=== PATIENT | male | born 1970 | race Caucasian/White ===

== ENCOUNTER 2016-06-13 17:46 | Emergency (ER) | payer SELFPAY ==
[~2016-06-13] VITALS: Ht 177.8 cm; Wt 91.0 kg
[~2016-06-13 17:46] MED LIST: ETOMIDATE 2MG/ML 10ML VIAL IV ONE; VECURONIUM BROMIDE 10 MG/VIAL IV ONE
[2016-06-13 19:46] LABS: BASOPHILS % 0.9 % (0.0-2.0); HEMATOCRIT. 41.1 % (42.0-52.0); LYMPHOCYTES % 20.7 % (20.0-50.0); MEAN CORPUSCULAR HEMOGLOBIN 30.8 pg (28.0-32.0); MEAN CORPUSCULAR VOLUME 90.3 fL (80.0-94.0); MEAN PLATELET VOLUME 8.9 fl (7.4-10.4); MONOCYTES % 5.2 % (2.0-8.0); NEUTROPHILS % 73.2 % (40.0-76.0); PLATELET 93 x1000/uL (130-400); RED BLOOD CELL COUNT 4.56 mill/uL (4.7-6.1); RED CELL DISTRIBUTION WIDTH 19.7 % (11.6-14.6)
[2016-06-13 19:47] LABS: CARBON DIOXIDE 20 mEq/L (21-32); CHLORIDE 96 mEq/L (98-107); ETHANOL BLOOD 53 mg/dL
[2016-06-13] MEDS ORDERED: PHENYTOIN SODIUM 500 MG in SODIUM CHLORIDE 0.9% 50 ML IV ONE (20:45)
[2016-06-13] MEDS ORDERED: MANNITOL 12.5G (25%) VIAL 50ML IV ONE (20:45)
[2016-06-13] MEDS ORDERED: PROPOFOL 10MG/ML 100ML 100 ML IV ONE (21:00)
[2016-06-13] MEDS ORDERED: MANNITOL 12.5G (25%) VIAL 50ML IV NR (21:00)
[2016-06-13 21:06] VITALS: BP 144/93
[2016-06-13] MEDS ORDERED: ETOMIDATE 2MG/ML 10ML VIAL IV ONE (23:30)
[2016-06-13] MEDS ORDERED: VECURONIUM BROMIDE 10 MG/VIAL IV ONE (23:30)
== END 2016-06-13 23:21 | disposition short-term general hospital (02) ==
LOC: ER 17:47
DX: I61.8 Other nontraumatic intracerebral hemorrhage (principal); J96.00 Acute respiratory failure, unspecified whether with hypoxia or hypercapnia; I10 Essential (primary) hypertension; F10.229 Alcohol dependence with intoxication, unspecified; Y90.9 Presence of alcohol in blood, level not specified; E87.8 Other disorders of electrolyte and fluid balance, not elsewhere classified; R91.8 Other nonspecific abnormal finding of lung field; M54.2 Cervicalgia
CPT/HCPCS: 31500; 36415; 43752; 51702; 70450; 71010; 72125; 80048; 85025; 96365; 96366; 96368; 99291; G0482; J1165; J2150; J2704; J3490; Z7610; 43760; 94002; A4315